=== PATIENT | male | born 1960 | race Caucasian/White ===

== ENCOUNTER 2019-12-19 10:18 | Emergency (ER) | payer OTHER, SELFPAY ==
[2019-12-19 10:25] VITALS: BP 112/77; PULSE 76; RESP 16; TEMP 36.7; O2SAT 98
--- NOTE | 2019-12-19 10:47 | ED.SKABFB ---
HPI - Skin/Abscess/Foreign Bdy General Chief complaint: Skin/Abscess/Foreign Body Stated complaint: rash on leg and arms Time Seen by Provider: 12/19/19 10:43 Source: patient and RN notes reviewed Mode of arrival: ambulatory Limitations: no limitations History of Present Illness HPI narrative: Patient presents today complaining of a pruritic rash to the arms and legs x3 days that continues to worsen. He has been using calamine lotion without much relief. Denies shortness of breath, facial swelling, difficulty swallowing.No recent steroid use. MD complaint: rash Related Data Home Medications Medication Instructions Recorded Confirmed albuterol sulfate [ProAir HFA] 1 puff INHALATION QID PRN 12/19/19 12/19/19 brimonidine-timolol [Combigan] 1 drp OPHTHALMIC (EYE) Q12H 12/19/19 12/19/19 dicyclomine 10 mg PO TID 12/19/19 12/19/19 dutasteride 0.5 mg PO DAILY 12/19/19 12/19/19 latanoprost 1 drp OPHTHALMIC (EYE) DAILY 12/19/19 12/19/19 levothyroxine 75 mcg PO DAILY 12/19/19 12/19/19 omeprazole 40 mg PO DAILY 12/19/19 12/19/19 tamsulosin 0.4 mg PO DAILY 12/19/19 12/19/19 Allergies Allergy/AdvReac Type Severity Reaction Status Date / Time No Known Allergies Allergy Unknown NONE Verified 03/09/19 07:35 Review of Systems Review of Systems: Narrative: CONSTITUTIONAL: Denies body aches, fever, chills, or sweats. EYES: Denies visual changes, redness, or discharge. ENT: Denies rhinorrhea, congestion, sore throat, or otalgia. CARDIOVASCULAR: Denies chest pain, palpitations, or edema. RESPIRATORY: Denies cough or dyspnea. GASTROINTESTINAL: Denies abdominal pain, nausea, vomiting, or diarrhea. GENITOURINARY: Denies dysuria or hematuria. SKIN: Denies wounds.+Pruritic rash to arms and legs MUSCULOSKELETAL: Denies back pain, joint pain, or myalgia. NEUROLOGIC: Denies headache, numbness, tingling, or weakness. PSYCH: Denies depression or anxiety. [facility] Past Medical History Medical History (Updated 05/05/20 @ 10:56 by Frieda Brasher, [employer], ) BPH (benign prostatic hyperplasia) Fatty liver GERD (gastroesophageal reflux disease) Glaucoma Hypercholesterolemia Hypertension Hypothyroidism Osteoarthritis Renal cyst Comments At time of signature, I have reviewed and agree with nursing past medical, surgical, social and family history unless otherwise noted. Please see nursing chart for further information. There is no relevant family history pertinent to the presenting complaint Exam Narrative: Exam Narrative: GENERAL: Well-appearing, well-nourished, and in no acute distress. HEAD: Normocephalic, atraumatic. EYES: EOMI. No redness or drainage. Conjunctivae normal. ENT: Mucous membranes pink and moist. No facial swelling. NECK: Normal AROM. Supple. No lymphadenopathy. CHEST: No respiratory distress. Clear to auscultation. HEART: Regular rate and rhythm. No murmur appreciated. Normal peripheral pulses. ABDOMEN: Soft, nontender, nondistended, normal active bowel sounds. MUSCULOSKELETAL: No bony tenderness. EXTREMITIES: Normal range of motion. No edema. SKIN: Warm, dry, . Capillary refill normal. Normal skin turgor. Widespread erythematous papular/vesicular lesions to the bilateral legs and forearms. NEURO: No focal deficits. Alert and oriented x3. Gait steady. PSYCH: Normal affect. No signs of depression or anxiety. Course Vital Signs Vital signs: Vital Signs Temperature 98.1 F 12/19/19 10:25 Pulse Rate 76 12/19/19 10:25 Respiratory Rate 16 12/19/19 10:25 Blood Pressure 112/77 12/19/19 10:25 Pulse Oximetry 98 12/19/19 10:25 Temperature 98.1 F 12/19/19 10:25 Pulse Rate 76 12/19/19 10:25 Respiratory Rate 16 12/19/19 10:25 Blood Pressure 112/77 12/19/19 10:25 Pulse Oximetry 98 12/19/19 10:25 Reviewed MDM - Skin/Abscess/Foreign Bdy Differential Diagnosis Differential diagnosis: Likely abscess of skin or subcutaneous tissue, urticaria, allergic reaction to drug, cellulitis, eczema,
== END 2019-12-19 11:00 | disposition home or self-care (01) ==
PROVIDERS: Emergency Provider Nurse Practitioner; PCP Internal Medicine
DX: L23.7 Allergic contact dermatitis due to plants, except food (principal)
CPT/HCPCS: 99213; G0463

== ENCOUNTER 2020-03-10 08:15 | Emergency (ER) | payer OTHER, SELFPAY ==
[2020-03-10 08:20] VITALS: BP 148/84; PULSE 64; RESP 20; TEMP 37.3; O2SAT 99
--- NOTE | 2020-03-10 08:44 | ED.GENADULT ---
HPI - General Adult General Chief complaint: Skin/Abscess/Foreign Body Stated complaint: rash on legs/chest/face Time Seen by Provider: 03/10/20 08:44 Source: patient and RN notes reviewed Mode of arrival: ambulatory Limitations: no limitations History of Present Illness HPI narrative: 59-year-old male presents with complaints of red, raised, itching, burning, rash to right cheek, right upper chest, bilateral upper anterior forearms, and bilateral anterior lower extremities for the past 2 days. Evin had been out doing yard work and 1-2 days later rash appeared. Calamine lotion without relief. Denies new detergent, personal hygiene products, or laundry detergent. No new foods or medications. No swelling, bleeding, or drainage. Denies fever or chills, headaches, weakness, fatigue, malagia, facial swelling, or tongue swelling. Denies chest pain or dyspnea. The patient reports they have not been diagnosed with COVID-19. The patient reports they are not waiting for the results of a COVID-19 lab test. The patient reports they do not have fever, chills, weakness, or fatigue. The patient reports they do not have a new or worsening cough or shortness of breath. Denies chest pain. The patient reports they do not have any rhinorrhea, congestion, sore throat, nausea, vomiting, abdominal pain, and diarrhea. Tolerating po intake well. Denies recent traveling. Denies concerns for COVID-19 or exposures been home with limited outdoor exposure except for essential household needs and return home. At this time, patient is not suspected of having COVID-19. Some parts of this dictation were generated by voice recognition software and may contain typographical and/or grammatical inaccuracies. Related Data Home Medications Medication Instructions Recorded Confirmed albuterol sulfate [ProAir HFA] 1 puff INHALATION QID PRN 12/19/19 03/10/20 brimonidine-timolol [Combigan] 1 drp OPHTHALMIC (EYE) Q12H 12/19/19 03/10/20 dicyclomine 10 mg PO TID 12/19/19 03/10/20 dutasteride 0.5 mg PO DAILY 12/19/19 03/10/20 latanoprost 1 drp OPHTHALMIC (EYE) DAILY 12/19/19 03/10/20 levothyroxine 75 mcg PO DAILY 12/19/19 03/10/20 omeprazole 40 mg PO DAILY 12/19/19 03/10/20 tamsulosin 0.4 mg PO DAILY 12/19/19 03/10/20 Allergies Allergy/AdvReac Type Severity Reaction Status Date / Time poison oswaldo extract Allergy Rash Verified 03/10/20 08:32 Review of Systems Review of Systems: Narrative: CONSTITUTIONAL: Denies fever, chills, sweats. EYES: Denies visual changes, redness, discharge. ENT: Denies rhinorrhea, congestion, sore throat, otalgia. CARDIOVASCULAR: Denies chest pain, palpitations, edema. RESPIRATORY: Denies dyspnea, wheezing, cough. GASTROINTESTINAL: Denies abdominal pain, nausea, vomiting, diarrhea. GENITOURINARY: Denies dysuria, hematuria, abnormal discharge. SKIN: Complains of red, burning, and itching rash to right cheek, right upper chest, bilateral upper anterior forearms, and bilateral anterior lower extremities. Denies drainage. MUSCULOSKELETAL: Denies acute back pain, joint pain, or myalgia. NEUROLOGIC: Denies numbness or focal weakness. PSYCHIATRIC: Denies anxiety or depression. All other systems reviewed are negative, except as documented in HPI. [facility] Past Medical History Medical History (Updated 03/11/20 @ 00:00 by Background Daemon) BPH (benign prostatic hyperplasia) Fatty liver GERD (gastroesophageal reflux disease) Glaucoma Hypercholesterolemia Hypertension Hypothyroidism Osteoarthritis Renal cyst Surgical History Surgical History (Updated 03/10/20 @ 08:52 by JEREMY Puga) No significant past surgical history Family History Family History (Updated 03/10/20 @ 08:53 by JEREMY Puga) Father Alive and well Mother Hypothyroidism Social History Social History (Updated 03/10/20 @ 08:54 by JEREMY Puga) Smoking status: Former smoker Tobacco type: cigarettes Second hand tobacco
[2020-03-10] MEDS: methylPREDNISolone SOD SUCC 125 MG VIAL IM (08:57)
== END 2020-03-10 09:17 | disposition home or self-care (01) ==
PROVIDERS: Emergency Provider Nurse Practitioner Family; PCP Internal Medicine
DX: L23.7 Allergic contact dermatitis due to plants, except food (principal); Z87.891 Personal history of nicotine dependence; N40.0 Benign prostatic hyperplasia without lower urinary tract symptoms; K21.9 Gastro-esophageal reflux disease without esophagitis; H40.9 Unspecified glaucoma; E78.00 Pure hypercholesterolemia, unspecified; I10 Essential (primary) hypertension; E03.9 Hypothyroidism, unspecified; M19.90 Unspecified osteoarthritis, unspecified site; K76.0 Fatty (change of) liver, not elsewhere classified
CPT/HCPCS: 96372; 99213; G0463; J2930

== ENCOUNTER 2020-12-13 09:43 | Emergency (ER) | payer OTHER, SELFPAY ==
[2020-12-13 09:48] VITALS: BP 149/83; PULSE 73; RESP 14; TEMP 37.2; O2SAT 99
--- NOTE | 2020-12-13 09:48 | ED.BACK ---
HPI - Back Pain/Injury General Chief Complaint: Back Pain/Injury Stated Complaint: Back Pain Time Seen by Provider: 12/13/20 09:48 Source: patient and RN notes reviewed History of Present Illness HPI Narrative: Patient is a 60-year-old male who presents the urgent care with complaints of left buttocks/lower back pain radiating to the left leg. Patient states he has a history of sciatica and tends to cause his left leg to buckle. Patient is ambulating with a walker for comfort and help. Patient states that it started 3 days ago and he has been taking Advil without any relief. Patient states that he helps his due to her having cancer but denies of any known injury that caused the flare. Denies of any falls. No other acute complaints. No acute distress noted. Patient aware of the plan of care. Some parts of this dictation were generated by voice recognition software and may contain typographical and/or grammatical inaccuracies. Related Data Home Medications Medication Instructions Recorded Confirmed dicyclomine 10 mg PO TID 12/19/19 12/13/20 dutasteride 0.5 mg PO DAILY 12/19/19 12/13/20 omeprazole 40 mg PO DAILY 12/19/19 12/13/20 tamsulosin 0.4 mg PO DAILY 12/19/19 12/13/20 levothyroxine [Synthroid] 75 mcg PO DAILY 12/13/20 12/13/20 Allergies Allergy/AdvReac Type Severity Reaction Status Date / Time poison oswaldo extract Allergy Rash Verified 12/13/20 09:54 Review of Systems Review of Systems: Narrative: CONSTITUTIONAL: Denies fever, chills, or sweats. EYES: Denies visual changes, redness, or discharge. ENT: Denies rhinorrhea, congestion, sore throat, or otalgia. CARDIOVASCULAR: Denies chest pain, palpitations, or edema. RESPIRATORY: Denies cough or dyspnea. GASTROINTESTINAL: Denies abdominal pain, nausea, vomiting, or diarrhea. GENITOURINARY: Denies dysuria or hematuria. SKIN: Denies rash or itching. MUSCULOSKELETAL: Reports of left low back pain radiating down the left leg NEUROLOGIC: Denies headache, numbness, or weakness. All other systems reviewed are negative, except as documented in HPI. [facility] Past Medical History Medical History (Updated 12/13/20 @ 09:56 by JEREMY Alfaro) BPH (benign prostatic hyperplasia) Fatty liver GERD (gastroesophageal reflux disease) Glaucoma Hypercholesterolemia Hypertension Hypothyroidism Osteoarthritis Renal cyst Surgical History Surgical History (Updated 03/10/20 @ 08:52 by JEREMY Puga) No significant past surgical history Family History Family History (Updated 03/10/20 @ 08:53 by JEREMY Puga) Father Alive and well Mother Hypothyroidism Social History Social History (Updated 03/10/20 @ 08:54 by JEREMY Puga) Smoking status: Former smoker Tobacco type: cigarettes Second hand tobacco smoke exposure: No Smoking end date: 08/16/18 Alcohol intake: current Substance use: never Gender identity (if verbalized by the patient): Male Comments At the time of my signature, I reviewed and agree with the nursing past medical, surgical, social, and family history. There is no relevant family history pertinent to the patient complaint. Exam Narrative: Exam Narrative: GENERAL: This is a well-nourished, well-developed patient, in no apparent distress. HEAD: normocephalic, atraumatic. EYES: PERRL. Sclera clear/white. Vision is grossly intact. EARS: External ears normal NOSE: External nose normal with no obvious nasal discharge, nares without redness, no rhinorrhea. THROAT: Mucous membranes moist NECK: Neck supple SKIN: warm, intact with no suspicious lesions or rash, good texture and turgor. NEURO: awake, alert, and oriented to person, place and time. There were no obvious focal neurologic abnormalities. EXTREMITIES: No clubbing, cyanosis, or edema. BACK: Mild left lumbar tenderness with positive left SLE Course Vital Signs Vital signs: Vital Signs Temperature 99 F 12/13/20 09:48 Pulse Rate 73
== END 2020-12-13 09:59 | disposition home or self-care (01) ==
PROVIDERS: Emergency Provider Nurse Practitioner Family
DX: M54.32 Sciatica, left side (principal); N40.0 Benign prostatic hyperplasia without lower urinary tract symptoms; K21.9 Gastro-esophageal reflux disease without esophagitis; H40.9 Unspecified glaucoma; E78.00 Pure hypercholesterolemia, unspecified; I10 Essential (primary) hypertension; E03.9 Hypothyroidism, unspecified; M19.90 Unspecified osteoarthritis, unspecified site; K76.0 Fatty (change of) liver, not elsewhere classified; Z87.891 Personal history of nicotine dependence
CPT/HCPCS: 99213; G0463

== ENCOUNTER 2021-03-07 12:45 | Emergency (ER) | payer OTHER, SELFPAY ==
--- NOTE | ~2021-03-07 | XR_ITS ---
EXAMINATION: XR chest 2V DATE: 03/07/2021 13:11 INDICATION: Left-sided chest pain TECHNIQUE: PA and lateral views of the chest are obtained. COMPARISON: None available FINDINGS: The lungs are free of acute opacities. There is no pleural effusion or pneumothorax. The ca rdiomediastinal silhouette is normal. The visualized bones and soft tissues are unremarkable. IMPRESSION: 1. No acute cardiopulmonary abnormality. Reviewed, dictated and finalized at location B.
--- NOTE | 2021-03-07 12:46 | ECG_ITS ---
Measurements Intervals [place] Rate: 79 P: 30 ND: 175 QRS: 24 QRSD: 85 T: 37 QT: 343 QTc: 394 Interpretive Statements SINUS RHYTHM DELAYED PRECORDIAL R/S TRANSITION BORDERLINE ECG Electronically Signed On 03-07-2021 13:07:29 CDT by Doe Spencer D.O.
[2021-03-07 12:57] VITALS: BP 137/93; PULSE 80; RESP 20; TEMP 36.8; O2SAT 99
[2021-03-07 13:11] LABS: Basophils Percent Auto 1.1 % (0.2-1.2); Eosinophils Absolute Auto 0.1 K/mm3 (0-0.3); Eosinophils Percent Auto 1.6 % (0-4.4); Hemoglobin 15.5 g/dL (14.0-18.0); Lymphocytes Absolute Auto 1.54 K/mm3 (0.9-3.2); Mean Corpuscular Hemoglobin 31.1 pg (26-34); Mean Corpuscular Volume 94.4 fl (80-100); Mean Platelet Volume 9.8 fl (7.4-10.4); Monocytes Absolute Auto 0.4 K/mm3 (0.1-0.6); Monocytes Percent Auto 11.2 % (2.6-8.5); Neutrophils Absolute Auto 1.7 K/mm3 (1.3-6.7); Neutrophils Percent Auto 45.1 % (45.5-73.1); Platelet Count Result 202 k/mm3 (150-375); Red Blood Count 4.98 M/mm3 (4.6-6.20); Red Cell Distribution Width 12.4 % (11.5-14.5); White Blood Count 3.8 K/mm3 (4.5-10.0)
[2021-03-07 13:21] LABS: INR 0.9; Prothrombin Time 12.2 Seconds (11.1-14.7)
[2021-03-07 13:28] LABS: Anion Gap 11 mmol/L (8-16); Blood Urea Nitrogen 21 mg/dL (9-20); Calcium 9.5 mg/dL (8.4-10.2); Carbon Dioxide 29 mmol/L (22-30); Chloride 102 mmol/L (98-107); Estimated CRCL calculation 95 ml/min; Estimated Glomerular Filt Rate > 60; Glucose 104 mg/dL (65-110); Potassium 4.4 mmol/L (3.4-5.0); Sodium 142 mmol/L (137-145)
[2021-03-07 13:40] LABS: Troponin I < 0.012 ng/mL (0.000-0.034)
[2021-03-07 14:08] VITALS: PULSE 77
[2021-03-07 14:10] VITALS: BP 159/86; PULSE 80; RESP 18; O2SAT 99
[2021-03-07] MEDS: ASPIRIN 81 MG CHEWABLE TABLET 324 MG PO (14:13)
--- NOTE | 2021-03-07 14:26 | ED.CHESTPAIN ---
HPI - Chest Pain General Chief Complaint: Chest Pain Stated Complaint: chest pain Time Seen by Provider: 03/07/21 14:16 History of Present Illness HPI narrative: 60 yo male presents to the ED for chest pain. He has had exertional chest pain for the past 2 weeks. It occasionally radiates to the back. He has never had this before. No SOB, cough, fever, leg swelling. He reports that he used to have high blood pressure, but does not anymore. Related Data Home Medications Medication Instructions Recorded Confirmed dicyclomine 10 mg PO TID 12/19/19 12/13/20 dutasteride 0.5 mg PO DAILY 12/19/19 12/13/20 omeprazole 40 mg PO DAILY 12/19/19 12/13/20 tamsulosin 0.4 mg PO DAILY 12/19/19 12/13/20 levothyroxine [Synthroid] 75 mcg PO DAILY 12/13/20 12/13/20 Allergies Allergy/AdvReac Type Severity Reaction Status Date / Time poison oswaldo extract Allergy Rash Verified 03/07/21 14:11 Review of Systems Review of Systems: All systems reviewed & are unremarkable except as noted in HPI and below Constitutional: Constitutional: Denies fever(s) ENT: Reports system reviewed and no additional complaints, except as documented Cardiovascular: Cardiovascular: Reports chest pain and Denies radiating jaw, neck or arm pain Respiratory: Respiratory: Denies dyspnea Gastrointestinal: Gastrointestinal: Denies nausea Musculoskeletal: Musculoskeletal: Denies back pain Neurologic: Denies dizziness and Denies weakness [facility] Past Medical History Medical History BPH (benign prostatic hyperplasia) Fatty liver GERD (gastroesophageal reflux disease) Glaucoma Hypercholesterolemia Hypertension Hypothyroidism Osteoarthritis Renal cyst Surgical History Surgical History No significant past surgical history Family History Family History Father Alive and well Mother Hypothyroidism Social History Social History Smoking status: Former smoker Tobacco type: cigarettes Second hand tobacco smoke exposure: No Smoking end date: 08/16/18 Alcohol intake: current Substance use: never Gender identity (if verbalized by the patient): Male Exam Const: General: healthy appearing, no acute distress and alert Orientation/consciousness: patient oriented x3 HENMT: Head: normal to inspection Neck: Neck: normal visual inspection and no lymphadenopathy Chest: Chest palpation & inspection: no tenderness Resp: Effort & Inspection: normal respiratory effort Auscultation: clear to auscultation bilaterally, no rales, no rhonchi and no wheezes Cardio: Jugular venous distension: no JVD Rate: regular rate Rhythm: regular rhythm Heart sounds: no murmurs GI: Inspection: non-distended GI Palp: Yes Soft to palpation and No Tenderness to palpation present (GI) Skin: General skin exam: normal color Neuro: General: patient oriented x3 and moves all extremities Speech: normal speech Extrem: General: no edema Psych: Appearance: well kempt Affect: normal affect Course Vital Signs Vital signs: Vital Signs Temperature 36.8 C 03/07/21 12:57 Pulse Rate 80 03/07/21 12:57 Respiratory Rate 20 03/07/21 12:57 Blood Pressure 137/93 H 03/07/21 12:57 Pulse Oximetry 99 03/07/21 12:57 Temperature 36.8 C 03/07/21 12:57 Pulse Rate 80 03/07/21 14:10 Respiratory Rate 18 03/07/21 14:10 Blood Pressure 159/86 H 03/07/21 14:10 Pulse Oximetry 99 03/07/21 14:10 MDM - Chest Pain MDM Narrative Medical decision making narrative: Story concerning for anginal chest pain. EKG, labs, exam unremarkable. Case discussed with Cardiology. Dr. Sequeira agrees with outpatient follow-up next week. Differential Diagnosis Differential diagnosis: Likely stable angina, unstable angina pectoris, st elevation myocard
[2021-03-07] MEDS: amLODIPine BESYLATE 5 MG TABLET PO (15:39)
[2021-03-07 15:42] VITALS: BP 176/76; PULSE 70; RESP 22; O2SAT 100
== END 2021-03-07 15:45 | disposition home or self-care (01) ==
PROVIDERS: Emergency Provider Emergency Medicine; PCP Internal Medicine
DX: R07.9 Chest pain, unspecified (principal); N40.0 Benign prostatic hyperplasia without lower urinary tract symptoms; K21.9 Gastro-esophageal reflux disease without esophagitis; H40.9 Unspecified glaucoma; E78.00 Pure hypercholesterolemia, unspecified; I10 Essential (primary) hypertension; E03.9 Hypothyroidism, unspecified; M19.90 Unspecified osteoarthritis, unspecified site; Z87.891 Personal history of nicotine dependence; R94.31 Abnormal electrocardiogram [ECG] [EKG]
CPT/HCPCS: 36415; 71046; 80048; 84484; 85025; 85610; 85730; 93005; 99284; A9270